=== PATIENT | male | born 1955 | race African-American/Black ===

== ENCOUNTER 2023-08-02 04:13 | Day surgery (SDC) | payer OTHER ==
[2023-07-29 15:00] VITALS: BMI 30.7
[2023-08-02 08:24] VITALS: RESP 18
[2023-08-02] MEDS ORDERED: SUCCINYLCHOLINE CHLORIDE 200 MG/10 ML SYRINGE ONE (10:37)
[2023-08-02] MEDS ORDERED: FENTANYL CITRATE/PF 50 MCG/ML VIAL ONE (10:37)
[2023-08-02] MEDS ORDERED: PROPOFOL 20 ML ONE (10:37)
[2023-08-02] MEDS ORDERED: MIDAZOLAM HCL 2 MG/2 ML SINGLE DOSE VIAL ONE (10:38)
[2023-08-02 14:01] VITALS: BP 131/69; PULSE 55; TEMP 97.7
== END 2023-08-02 12:00 | disposition home or self-care (01) ==
LOC: JASU-SURG 04:13
PROVIDERS: ATTEND Urology
PROC: 0TF4XZZ Fragmentation in Left Kidney Pelvis, External Approach (ICD-10-PCS; principal; 2023-08-02 10:30)
DX: N20.0 Calculus of kidney (principal)
CPT/HCPCS: 82962